=== PATIENT | male | born 1955 | race Caucasian/White ===

== ENCOUNTER 2017-01-09 07:05 | Inpatient (IN) | payer MEDICARE, SELFPAY ==
[2017-01-09 07:56] LABS: CHLORIDE,CL 104 mEq/L (98-106); SODIUM,NA 140 mEq/L (136-145)
[2017-01-09] MEDS ORDERED: Enoxaparin 80 MG/0.8 ML Syringe SUBCUT SCH (08:00)
[2017-01-09] MEDS ORDERED: Enoxaparin 60 MG/0.6 ML Syringe SUBCUT SCH (08:00)
--- NOTE | 2017-01-09 08:14 | EDM.PDOC ---
ED HPI GENERAL MEDICAL PROBLEM - General Chief Complaint: General Stated Complaint: sob Time Seen by Provider: 01/09/17 07:45 Source of Information: Reports: Patient History Limitations: Reports: No limitations - History of Present Illness INITIAL COMMENTS - FREE TEXT/NARRATIVE: Xavier is a 61 yo male who presents to the ER via private vehicle with concerns of shortness of breath. States symptoms initially started about a week ago and has gradually worsened the last few days. States he has a history of high blood pressure, but currently is not taking any medications. States when he tries to lay down the shortness of breath worsens. States he hasn't had any chest pain but does feel his heart beating fast. Denies any previous cardiac history besides having a history of hypertension. Onset: gradual Duration: Getting worse Location: Reports: generalized Improves with: Reports: Rest Worsens with: Reports: Other (layin down), Movement Associated Symptoms: Reports: shortness of breath. Denies: confusion, chest pain, cough, cough w sputum, diaphoresis, fever/chills, headaches, loss of appetite, malaise, nausea/vomiting, rash, seizure, syncope, weakness - Related Data Allergies Allergy/AdvReac Type Severity Reaction Status Date / Time No Known Allergies Allergy Verified 01/09/17 07:19 Home Meds: Home Meds . [No Known Home Meds] 01/09/17 [History] Past Medical History Cardiovascular History: Reports: Hypertension - Past Surgical History Cardiovascular Surgical History: Reports: None Social & Family History - Tobacco Use Smoking Status *Q: Never Smoker ED ROS GENERAL - Review of Systems Review Of Systems: See Below Constitutional: Reports: no symptoms. Denies: fever, chills, weakness, fatigue , night sweats, decreased appetite HEENT: Reports: No symptoms Respiratory: Reports: Shortness of Breath. Denies: Wheezing, Pleuritic Chest Pain, Cough Cardiovascular: Reports: Blood pressure problem, Dyspnea on exertion, Orthopnea , Palpitations. Denies: Chest pain, Edema, Lightheadedness, Syncope GI/Abdominal: Reports: No symptoms. Denies: Abdominal pain, Bloody stool, Constipation, Diarrhea, Hematochezia, Melena, Nausea, Vomiting : Reports: no symptoms Neurological: Reports: No Symptoms Psychiatric: Reports: No symptoms Hematologic/Lymphatic: Reports: no symptoms Immunologic: Reports: no symptoms ED EXAM, GENERAL - Physical Exam Exam: See Below Exam Limited By: No limitations General Appearance: alert, no apparent distress, obese Eye Exam: bilateral eye: EOMI, PERRL Ears: normal external exam, normal canal, hearing grossly normal, normal TMs Nose: normal inspection, normal mucosa, no blood. No: nasal tenderness, nasal deformity Throat/Mouth: Normal inspection, Normal lips, Normal teeth, Normal gums, Normal oropharynx, Normal voice, No airway compromise Neck: normal inspection, supple. No: lymphadenopathy (L), lymphadenopathy (R) Respiratory/Chest: no respiratory distress, lungs clear, no accessory muscle use , decreased breath sounds Cardiovascular: no murmur, irregularly irregular GI/Abdominal: normal bowel sounds, soft, no organomegaly, no distention, no mass Extremities: non-tender, normal capillary refill, pedal edema Neurological: alert, oriented, normal cognition, no motor/sensory deficits Psychiatric: normal affect, normal mood Skin Exam: Warm, Dry, Intact, Normal color, No rash EKG INTERPRETATION EKG Date: 01/09/17 Time: 07:30 Rhythm: a-fib Comparison: NA - no prior EKG Course - Vital Signs Last Recorded V/S: Last Vital Signs Temp 98.2 F 01/09/17 07:15 Pulse 113 H 01/09/17 07:53 Resp 20 01/09/17 07:53 BP 129/88 01/09/17 07:53 Pulse Ox 94 L 01/09/17 07:53 - Orders/Labs/Meds Orders: Active Orders 24 hr Category Date Time Status Patient Status Manage Transfer [TRANSFER] Routine ADT 01/09/17 07:59 Ordered Cardiac Monitoring [RC] . DIRECTED Care 01/09/17 07:59 Ordered Chest 2V [CR] Stat Exams 01/09/17 07:23 Taken Resuscitation Status Routine Resus Stat 01/09/17 07:59 Ordered Labs: Laboratory Tests 01/09/17 01/09/17 01/09/17 Range/Units 07:23 07:25 07:25 WBC 9.1 (5.0-10.0) 10^3/uL RBC 5.40 (4.50-6.00) 10^6/uL Hgb 15.1 (14.0-18.0) g/dL Hct 45.7 (40.0-54.0) % MCV 84.6 (82.0-94.0) fL MCH 28.0 (27.0-32.0) pg MCHC 33.0 (33.0-38.0) g/dL RDW Coeff of Manny 17.1 H (11.0-15.0) % Plt Count 290 (150-400) 10^3/uL Neut % (Auto) 76.1 (35-85) % Lymph % (Auto) 14.5 (10-55) % [place] % (Auto) 6.8 (0-16) % Eos % (Auto) 2.2 (0-5) % Baso % (Auto) 0.4 (0-3) % Neut # (Auto) 6.94 (1.80-7.00) 10^3/uL Lymph # (Auto) 1.32 (1.00-4.80) 10^3/uL [place] # (Auto) 0.62 (0.00-0.80) 10^3/uL Eos # (Auto) 0.20 (0.00-0.45) 10^3/uL Baso # (Auto) 0.04 10^3/uL PT 10.8 (9.7-12.3) SEC INR 1.00 (0.92-1.18) APTT 32.2 H (24.5-30.9) SEC D-Dimer, Quantitative 1.03 H (0.00-0.50) Sodium 140 (136-145) mEq/L Potassium 4.1 (3.5-5.0) mEq/L Chloride 104 (98-106) mEq/L Carbon Dioxide 22 (21-32) mmol/L BUN 18 (7-18) mg/dL Creatinine 1.4 H (0.7-1.3) mg/dL Est Cr Clr Drug Dosing 62.79 mL/min Estimated GFR (MDRD) 51 L (>=60) mL/min Glucose 200 H (75-99) mg/dL Calcium 8.8 (8.4-10.1) mg/dL Lactate Dehydrogenase 164 (100-190) U/L Creatine Kinase 91 (35-232) U/L Troponin I < 0.017 (0.00-0.06) ng/mL Departure - Departure Time of Disposition: 08:16 Disposition: Admitted As Inpatient 64 Clinical Impression: Atrial fibrillation with RVR, Uncontrolled hypertension Forms: ED Department Discharge - Problem List & Annotations (1) Atrial fibrillation with RVR SNOMED Code(s): 471023351203762 Code(s): I48.91 - UNSPECIFIED ATRIAL FIBRILLATION Status: Acute Current Visit: Yes (2) Uncontrolled hypertension SNOMED Code(s): 84053961 Code(s): I10 - ESSENTIAL (PRIMARY) HYPERTENSION Status: Acute Current Visit: Yes - Problem List Review Problem List Initiated/Reviewed/Updated: Yes - My Orders Last 24 Hours: My Active Orders 01/09/17 07:23 Chest 2V [CR] Stat 01/09/17 07:59 Patient Status Manage Transfer [TRANSFER] Routine Cardiac Monitoring [RC] . DIRECTED Resuscitation Status Routine - Assessment/Plan Admission H&P: Please use this note as an admission H&P Last 24 Hours: My Active Orders 01/09/17 07:23 Chest 2V [CR] Stat 01/09/17 07:59 Patient Status Manage Transfer [TRANSFER] Routine Cardiac Monitoring [RC] . DIRECTED Resuscitation Status Routine Plan: Xavier has atrial fibrillation with rapid ventricular response. Will admit to Dr. Bond's services under acute care for cardiac monitoring, anticoagulation and rate control. He will be bridged with Lovenox and Coumadin during his stay with daily INR's as well. Dr. Bond was consulted in regards to Xavier's condition and agreed with admission under acute care at this time.
[2017-01-09] MEDS ORDERED: Magnesium Hydroxide 400 MG/5 ML Susp 30 ML Cup PO PRN (08:18)
[2017-01-09] MEDS ORDERED: Sodium Chloride 0.9% 10 ML Syringe FLUSH PRN (08:18)
[2017-01-09] MEDS ORDERED: Enoxaparin 100 MG/1 ML Syringe SUBCUT SCH (08:18)
[2017-01-09] MEDS ORDERED: Acetaminophen 325 MG Tab PO PRN (08:18)
[2017-01-09] MEDS ORDERED: Diltiazem 100 MG in Sodium Chloride 0.9% 100 ML IV SCH (08:18)
[2017-01-09] MEDS ORDERED: Docusate Sodium 100 MG Cap PO PRN (08:18)
[2017-01-09] MEDS: Enoxaparin 80 MG/0.8 ML Syringe SUBCUT SCH ×2 (10:12→20:45)
[2017-01-09] MEDS: Diltiazem 120 MG Cap.CD PO SCH (10:13)
[2017-01-09] MEDS ORDERED: Warfarin 2 MG Tab PO ONE (12:00)
[2017-01-09] MEDS ORDERED: Warfarin 5 MG Tab PO ONE (12:00)
--- NOTE | 2017-01-09 14:46 | PN ---
DATE: 01/09/2017 S: Chuckie Amato came in with atrial fibrillation with rapid ventricular rate. We started him on Cardizem. His blood pressures are up, and he was started on lisinopril and Coumadin. O: NECK: Supple. CHEST: Clear. CARDIAC: Irregularly irregular. EXTREMITIES: Trace pretibial edema. ASSESSMENT: 1. NEW-ONSET ATRIAL FIBRILLATION. 2. LEFT VENTRICULAR SYSTOLIC CONGESTIVE HEART FAILURE. 3. HYPERTENSION, RENAL INSUFFICIENCY, LOW MAGNESIUM. WES/SKYLA /[id number]
[2017-01-09] MEDS: Lisinopril 10 MG Tab PO SCH (20:44)
[2017-01-10] MEDS: Diltiazem 120 MG Cap.CD PO SCH (07:56)
[2017-01-10] MEDS: Hydrochlorothiazide/Triamterene 25-37.5 MG Cap PO SCH (07:58)
[2017-01-10] MEDS: Enoxaparin 80 MG/0.8 ML Syringe SUBCUT SCH ×2 (07:59→20:01)
[2017-01-10] MEDS: Lisinopril 10 MG Tab PO SCH ×2 (07:59→20:01)
[2017-01-10] MEDS: Non-Formulary Medication 1 Each PO SCH (08:33)
--- NOTE | 2017-01-10 10:57 | PN ---
DATE: 01/10/2017 S: Chuckie Amato is in with atrial fibrillation, left ventricular systolic congestive heart failure, hypertension. O: GENERAL: On examination today, the patient is alert, orientated. VITAL SIGNS: As noted. NECK: Supple. CHEST: Clear. CARDIAC: Irregularly irregular. Trace pretibial edema. ASSESSMENT: ATRIAL FIBRILLATION, NEW ONSET. LEFT VENTRICULAR SYSTOLIC CONGESTIVE HEART FAILURE. HYPERTENSION. THE PATIENT IS STABLE TODAY. IT IS DIFFICULT TO DO AN ECHO HERE DUE TO HIS SIZE, SO WE ARE GOING TO PROBABLY REFER HIM TO A GEOLOGY SCIENTIST WHO CAN STABILIZE. WES/SKYLA /[id number]
[2017-01-10] MEDS ORDERED: Warfarin 5 MG Tab PO ONE (12:00)
[2017-01-11] MEDS: Lisinopril 10 MG Tab PO SCH ×2 (07:49→19:53)
[2017-01-11] MEDS: Hydrochlorothiazide/Triamterene 25-37.5 MG Cap PO SCH (07:51)
[2017-01-11] MEDS: Diltiazem 120 MG Cap.CD PO SCH (07:52)
[2017-01-11] MEDS: Enoxaparin 80 MG/0.8 ML Syringe SUBCUT SCH ×2 (07:52→19:54)
[2017-01-11] MEDS: Non-Formulary Medication 1 Each PO SCH (08:52)
[2017-01-11] MEDS ORDERED: Warfarin 2 MG Tab PO SCH (14:30)
[2017-01-11] MEDS: Warfarin 5 MG Tab PO SCH (14:52)
--- NOTE | 2017-01-11 22:27 | PCM.PN ---
- General Info Date of Service: 01/11/17 Admission Dx/Problem (Free Text): Patient was admitted to [facility] with new onset atrial fibrillation, left ventricular systolic congestive heart, hypertension. Continues anticoagulation with Lovenox and Coumadin with daily INR's. Nursing staff have no concerns for patient. Vitals remain stable. - Review of Systems General: Reports: No Symptoms Pulmonary: Reports: no symptoms Cardiovascular: Reports: Edema Gastrointestinal: Reports: No symptoms Genitourinary: Reports: no symptoms Musculoskeletal: Reports: no symptoms Neurological: Reports: No Symptoms Psychiatric: Reports: no symptoms - Patient Data Vitals - most recent: Last Vital Signs Temp 98.6 F 01/11/17 20:00 Pulse 70 01/11/17 20:00 Resp 20 01/11/17 20:00 BP 153/95 H 01/11/17 20:00 Pulse Ox 96 01/11/17 20:00 Weight - most recent: 527 lb 12.8 oz Lab Results last 24 hrs: Laboratory Results - last 24 hr 01/11/17 01/11/17 Range/Units 07:35 07:35 PT 12.0 (9.7-12.3) SEC INR 1.11 (0.92-1.18) Sodium 140 (136-145) mEq/L Potassium 4.2 (3.5-5.0) mEq/L Chloride 105 (98-106) mEq/L Carbon Dioxide 27 (21-32) mmol/L BUN 14 (7-18) mg/dL Creatinine 1.3 (0.7-1.3) mg/dL Est Cr Clr Drug Dosing 67.62 mL/min Estimated GFR (MDRD) 56 L (>=60) mL/min Glucose 112 H (75-99) mg/dL Calcium 8.7 (8.4-10.1) mg/dL Med Orders - Current: Current Medications Acetaminophen (Tylenol) 650 mg PO Q4H PRN PRN Reason: Pain (Mild 1-3)/fever Diltiazem HCl (Cardizem Cd) 120 mg PO DAILY [facility] Last Admin: 01/11/17 07:52 Dose: 120 mg Docusate Sodium (Colace) 100 mg PO BID PRN PRN Reason: Constipation Enoxaparin Sodium (Lovenox) 160 mg SUBCUT Q12H [facility] Last Admin: 01/11/17 19:54 Dose: 160 mg Lisinopril (Prinivil) 10 mg PO BID [facility] Last Admin: 01/11/17 19:53 Dose: 10 mg Magnesium Hydroxide (Milk Of Magnesia) 30 ml PO Q12H PRN PRN Reason: Constipation Magnesium Oxide (Magnesium Oxide) 500 mg PO DAILY [facility] Last Admin: 01/11/17 07:50 Dose: 500 mg Non-Formulary Medication (Nf Drug) 0 each PO DAILY [facility] Last Admin: 01/11/17 08:52 Dose: Not Given Sodium Chloride (Saline Flush) 10 ml FLUSH ASDIRECTED PRN PRN Reason: Keep Vein Open Triamterene/HCTZ (Dyazide 25-37.5 Mg) 1 each PO DAILY [facility] Last Admin: 01/11/17 07:51 Dose: 1 each Warfarin Sodium (Coumadin) 10 mg PO DAILY@1200 [facility] Last Admin: 01/11/17 14:52 Dose: 10 mg Discontinued Medications Diltiazem HCl 100 mg/ Sodium (Chloride) 100 mls @ 5 mls/hr IV TITRATE LUI; 5 MG /HR PRN Reason: Protocol Warfarin Sodium (Coumadin) 10 mg PO ONETIME ONE Stop: 01/09/17 12:01 Last Admin: 01/09/17 12:05 Dose: 10 mg Warfarin Sodium (Coumadin) 10 mg PO ONETIME ONE Stop: 01/10/17 12:01 Last Admin: 01/10/17 12:51 Dose: 10 mg Warfarin Sodium (Coumadin) 15 mg PO DAILY [facility] Last Admin: 01/11/17 14:46 Dose: Not Given - Exam General: alert, oriented Lungs: Clear to auscultation, Normal respiratory effort Cardiovascular: Irregular Rhythm Abdomen: soft, no tenderness Extremities: edema (2 mm pitting pedal and pretibial edema) Neurological: no new focal deficit Psy/Mental Status: alert, normal affect - Problem List Review Problem List Initiated/Reviewed/Updated: Yes - My Orders Last 24 Hours: My Active Orders 01/11/17 14:44 Warfarin [Coumadin] 10 mg PO DAILY@1200 - Assessment Assessment:: New onset atrial fibrillation, left ventricular systolic CHF, hypertension, morbid obesity - Plan Plan:: INR is 1.11 today. Will continue Coumadin 10 mg daily and Lovenox injections. repeat INR in the morning. Patient in agreement with today's plan.
[2017-01-12 07:54] LABS: CHLORIDE,CL 104 mEq/L (98-106); SODIUM,NA 139 mEq/L (136-145)
[2017-01-12] MEDS: Hydrochlorothiazide/Triamterene 25-37.5 MG Cap PO SCH (08:11)
[2017-01-12] MEDS: Diltiazem 120 MG Cap.CD PO SCH (08:11)
[2017-01-12] MEDS: Lisinopril 10 MG Tab PO SCH ×2 (08:12→19:50)
[2017-01-12] MEDS: Enoxaparin 80 MG/0.8 ML Syringe SUBCUT SCH ×2 (08:12→19:50)
[2017-01-12] MEDS: Non-Formulary Medication 1 Each PO SCH (09:11)
[2017-01-12] MEDS: Warfarin 5 MG Tab PO SCH (11:57)
--- NOTE | 2017-01-12 14:04 | PCM.PN ---
- General Info Date of Service: 01/12/17 Admission Dx/Problem (Free Text): Patient was admitted to [facility] with new onset atrial fibrillation, left ventricular systolic congestive heart, hypertension. Continues anticoagulation with Lovenox and Coumadin with daily INR's. INR today is 1.31.Nursing staff have no concerns for patient. Vitals remain stable. Functional Status: Reports: tolerating diet, urinating - Review of Systems HEENT: Reports: no symptoms Pulmonary: Reports: no symptoms Cardiovascular: Reports: No Symptoms Gastrointestinal: Reports: No symptoms - Patient Data Vitals - most recent: Last Vital Signs Temp 97.9 F 01/12/17 12:00 Pulse 74 01/12/17 12:00 Resp 20 01/12/17 12:00 BP 145/94 H 01/12/17 12:00 Pulse Ox 96 01/12/17 12:00 Weight - most recent: 527 lb 12.8 oz Lab Results last 24 hrs: Laboratory Results - last 24 hr 01/12/17 01/12/17 Range/Units 07:00 07:00 PT 14.3 H (9.7-12.3) SEC INR 1.31 H (0.92-1.18) Sodium 139 (136-145) mEq/L Potassium 4.2 (3.5-5.0) mEq/L Chloride 104 (98-106) mEq/L Carbon Dioxide 25 (21-32) mmol/L BUN 15 (7-18) mg/dL Creatinine 1.2 (0.7-1.3) mg/dL Est Cr Clr Drug Dosing 73.26 mL/min Estimated GFR (MDRD) > 60 (>=60) mL/min Glucose 107 H (75-99) mg/dL Calcium 8.6 (8.4-10.1) mg/dL Med Orders - Current: Current Medications Acetaminophen (Tylenol) 650 mg PO Q4H PRN PRN Reason: Pain (Mild 1-3)/fever Diltiazem HCl (Cardizem Cd) 120 mg PO DAILY [facility] Last Admin: 01/12/17 08:11 Dose: 120 mg Docusate Sodium (Colace) 100 mg PO BID PRN PRN Reason: Constipation Enoxaparin Sodium (Lovenox) 160 mg SUBCUT Q12H [facility] Last Admin: 01/12/17 08:12 Dose: 160 mg Lisinopril (Prinivil) 10 mg PO BID [facility] Last Admin: 01/12/17 08:12 Dose: 10 mg Magnesium Hydroxide (Milk Of Magnesia) 30 ml PO Q12H PRN PRN Reason: Constipation Magnesium Oxide (Magnesium Oxide) 500 mg PO DAILY [facility] Last Admin: 01/12/17 08:11 Dose: 500 mg Non-Formulary Medication (Nf Drug) 0 each PO DAILY [facility] Last Admin: 01/12/17 09:11 Dose: Not Given Sodium Chloride (Saline Flush) 10 ml FLUSH ASDIRECTED PRN PRN Reason: Keep Vein Open Triamterene/HCTZ (Dyazide 25-37.5 Mg) 1 each PO DAILY [facility] Last Admin: 01/12/17 08:11 Dose: 1 each Warfarin Sodium (Coumadin) 10 mg PO DAILY@1200 [facility] Last Admin: 01/12/17 11:57 Dose: 10 mg Discontinued Medications Diltiazem HCl 100 mg/ Sodium (Chloride) 100 mls @ 5 mls/hr IV TITRATE LUI; 5 MG /HR PRN Reason: Protocol Warfarin Sodium (Coumadin) 10 mg PO ONETIME ONE Stop: 01/09/17 12:01 Last Admin: 01/09/17 12:05 Dose: 10 mg Warfarin Sodium (Coumadin) 10 mg PO ONETIME ONE Stop: 01/10/17 12:01 Last Admin: 01/10/17 12:51 Dose: 10 mg Warfarin Sodium (Coumadin) 15 mg PO DAILY [facility] Last Admin: 01/11/17 14:46 Dose: Not Given - Exam General: alert, oriented Lungs: Clear to auscultation, Normal respiratory effort Cardiovascular: Irregular Rhythm (irregularly irregular) Abdomen: soft, no tenderness Extremities: edema (to both feet and lower legs) Skin: warm, dry, intact Neurological: no new focal deficit Psy/Mental Status: alert, normal affect, normal mood - Problem List Review Problem List Initiated/Reviewed/Updated: Yes - My Orders Last 24 Hours: My Active Orders 01/11/17 14:44 Warfarin [Coumadin] 10 mg PO DAILY@1200 - Assessment Assessment:: New onset atrial fibrillation, left ventricular systolic CHF, hypertension, morbid obesity - Plan Plan:: INR is 1.31 today. continue Coumadin 10 mg daily and Lovenox injections. repeat INR in the morning. Patient in agreement with today's plan.
[2017-01-13] MEDS: Enoxaparin 80 MG/0.8 ML Syringe SUBCUT SCH (08:41)
[2017-01-13] MEDS: Lisinopril 10 MG Tab PO SCH (08:41)
[2017-01-13] MEDS: Diltiazem 120 MG Cap.CD PO SCH (08:41)
[2017-01-13] MEDS: Hydrochlorothiazide/Triamterene 25-37.5 MG Cap PO SCH (08:41)
[2017-01-13 08:42] VITALS: BP 147/93
[2017-01-13] MEDS: Non-Formulary Medication 1 Each PO SCH (09:28)
--- NOTE | 2017-01-13 10:02 | DISCH ---
HOSPITAL COURSE: Chuckie Amato presents himself to the hospital with short of breath, atrial fibrillation with rapid ventricular rate with left ventricular systolic congestive heart failure, hypertension. Medications were adjusted. He was started on anticoagulants and appropriate blood pressure medication including calcium channel blockers, YAMILET inhibitors, diuretics. Lab here in the hospital, CBC looked good. INRs were iatrogenically elevated, panel- 8 looked good, calcium is good, ProBNP was 2012, TSH is 11.14, T4 was normal, so we will follow that as an outpatient. Magnesium was a little bit low and he will continue the magnesium oxide at 500 mg daily. DISCHARGE DIAGNOSIS: 1. LEFT VENTRICULAR SYSTOLIC CONGESTIVE HEART FAILURE ASSOCIATED. 2. ATRIAL FIBRILLATION. 3. HYPERTENSION. 4. LOW MAGNESIUM. WES/SKYLA /[id number]
== END 2017-01-13 11:15 | disposition home or self-care (01) | DRG 293 ==
LOC: CC.ED 07:05 → CC.MS 08:12 → UNDOADMIN 08:12 → CC.MS 08:18
PROVIDERS: ADMIT Physician Assistant Medical; ATTEND General Practice
DX: I50.20 Unspecified systolic (congestive) heart failure (principal); I48.91 Unspecified atrial fibrillation; I10 Essential (primary) hypertension; E66.01 Morbid (severe) obesity due to excess calories; Z68.44 Body mass index [BMI] 60.0-69.9, adult; E83.42 Hypomagnesemia
CPT/HCPCS: 36415; 71020; 80048; 81001; 82550; 83615; 83735; 83880; 84439; 84443; 84484; 85025; 85379; 85610; 85730; 93005; 93010; 99285; A9270-GY; J1650